=== PATIENT | male | born 2000 | race Caucasian/White ===

== ENCOUNTER 2019-03-31 14:45 | Inpatient (IN) | payer OTHER ==
[~2019-03-31] VITALS: Ht 175.3 cm; Wt 120.2 kg
[2019-03-31] MEDS ORDERED: SODIUM CHLORIDE 0.9% 1000ML BAG (SEPSIS BOLUS) IV ONE (15:30)
[2019-03-31] MEDS ORDERED: CLINDAMYCIN 600 MG in DEXTROSE 5% WATER 50 ML IV ONE (15:30)
[2019-03-31 15:51] LABS: BASOPHILS % 0.3 % (0.0-2.0); HEMATOCRIT. 46.6 % (42.0-52.0); HEMOGLOBIN. 16.1 g/dL (14.0-18.0); LYMPHOCYTES % 15.9 % (20.0-50.0); MEAN CORPUSCULAR HEMOGLOBIN 28.5 pg (28.0-32.0); MEAN CORPUSCULAR VOLUME 82.3 fL (80.0-94.0); MEAN PLATELET VOLUME 7.4 fl (7.4-10.4); MONOCYTES % 8.6 % (2.0-8.0); NEUTROPHILS % 75.2 % (40.0-76.0); PLATELET 333 x1000/uL (130-400); RED BLOOD CELL COUNT 5.66 mill/uL (4.7-6.1); RED CELL DISTRIBUTION WIDTH 13.1 % (11.6-14.6)
[2019-03-31 15:55] LABS: CHLORIDE 97 mEq/L (98-107)
[2019-03-31 15:58] LABS: INR 1.2; PROTHROMBIN TIME 11.8 sec (9.6-11.0)
[2019-03-31] MEDS ORDERED: ACETAMINOPHEN 500MG TABLET PO ONE (16:15)
[2019-03-31] MEDS ORDERED: ACETAMINOPHEN 500MG TABLET ONE (16:18)
[2019-03-31 18:10] LABS: CLARITY URINE CLEAR (CLEAR); COLOR URINE DARK YELLOW (YELLOW); KETONES URINE TRACE (NEGATIVE); LEUKOCYTE ESTERASE URINE NEGATIVE (NEGATIVE); NITRITE URINE NEGATIVE (NEGATIVE); OCCULT BLOOD URINE NEGATIVE (NEGATIVE); PROTEIN URINE 2+ (NEGATIVE); SPECIFIC GRAVITY URINE 1.023 (1.005-1.030)
[2019-03-31] MEDS ORDERED: CLONIDINE 0.1MG TABLET PO PRN (21:30)
[2019-03-31] MEDS ORDERED: DOCUSATE SODIUM 100MG CAPSULE PO PRN (21:30)
[2019-03-31] MEDS ORDERED: ZOLPIDEM TARTRATE 5MG TABLET PO PRN (21:30)
[2019-03-31] MEDS ORDERED: ONDANSETRON HCL 4MG/2ML INJ IV PRN (21:30)
[2019-03-31] MEDS ORDERED: HALOPERIDOL LACTATE 5MG/ML VIAL IM PRN (21:30)
[2019-03-31] MEDS ORDERED: NITROGLYCERIN 0.4MG TABLET SL SL PRN (21:30)
[2019-03-31] MEDS ORDERED: IPRATROPIUM/ALBUTEROL 0.5-3(2.5)MG/3ML NEB INH PRN (21:30)
[2019-03-31] MEDS ORDERED: KETOROLAC 15MG/ML VIAL IV PRN (21:30)
[2019-03-31] MEDS ORDERED: MAGNESIUM/ALUMINUM HYDROXIDE/SIMETHICONE 30ML UDC PO PRN (21:30)
[2019-03-31] MEDS ORDERED: LORAZEPAM 0.5MG TABLET PO PRN (21:30)
[2019-03-31] MEDS ORDERED: CLINDAMYCIN 600 MG in DEXTROSE 5% WATER 50 ML IV SCH (22:00)
[2019-03-31 23:10] VITALS: BP 151/90
[2019-04-01] VITALS: BP 151/90
[2019-04-01] MEDS: CLINDAMYCIN 600MG PREMIX 50 ML IV SCH ×2 (01:54→09:28)
[2019-04-01 04:00] VITALS: BP 127/70
[2019-04-01 08:00] VITALS: BP 140/92
[2019-04-01] MEDS ORDERED: ZINC SULFATE 220 MG ( 50 ) CAPSULE PO SCH (09:00)
[2019-04-01] MEDS ORDERED: ASCORBIC ACID 500 MG TABLET PO SCH (09:00)
[2019-04-01] MEDS ORDERED: FAMOTIDINE 20MG TABLET PO SCH (09:00)
[2019-04-01 09:15] LABS: CANNABINOID URINE SCREEN NEGATIVE (NEGATIVE)
[2019-04-01 09:16] LABS: *AMPHETAMINES SCREEN URINE NEGATIVE (NEGATIVE); *BARBITURATES SCREEN URINE NEGATIVE (NEGATIVE); *BENZODIAZEPINES SCREEN URINE NEGATIVE (NEGATIVE); *COCAINE SCREEN URINE NEGATIVE (NEGATIVE); METHADONE URINE SCREEN NEGATIVE (NEGATIVE); OPIATES URINE SCREEN NEGATIVE (NEGATIVE); PHENCYCLIDINE URINE SCREEN NEGATIVE (NEGATIVE)
[2019-04-01 12:00] VITALS: BP 139/80
[2019-04-01 13:41] VITALS: BP 139/80
== END 2019-04-01 15:00 | disposition home or self-care (01) | DRG 383 ==
LOC: ER 14:45 → 5WST 21:14 → EDBEDREQSVC 21:19 → EDBEDREQTM 21:19 → EDBEDREQ 21:19 → ENRESERV 22:02
PROVIDERS: ADMIT Internal Medicine; ATTEND Internal Medicine
DX: L03.115 Cellulitis of right lower limb (principal); E66.01 Morbid (severe) obesity due to excess calories; E11.9 Type 2 diabetes mellitus without complications; Z88.0 Allergy status to penicillin; Z68.39 Body mass index [BMI] 39.0-39.9, adult; Z79.84 Long term (current) use of oral hypoglycemic drugs
CPT/HCPCS: 36415; 71045; 73590; 80305; 82962; 83036; 83605; 84145; 84484; 93005; 96365; 99285; J3490; J7030; J7050; J7060

== ENCOUNTER 2020-02-17 14:23 | Emergency (ER) | payer OTHER ==
[~2020-02-17] VITALS: Ht 177.8 cm; Wt 108.0 kg
[2020-02-17] MEDS ORDERED: IBUPROFEN 600MG TABLET PO ONE (16:30)
[2020-02-17 16:46] VITALS: BP 135/87
== END 2020-02-17 17:51 | disposition home or self-care (01) ==
LOC: ER 14:23
DX: M25.561 Pain in right knee (principal); Z88.0 Allergy status to penicillin
CPT/HCPCS: 73562; 99283